=== PATIENT | female | born 1990 | race Hispanic/Latino ===

== ENCOUNTER → 2019-03-06 | Day surgery (SDC) | payer BC ==
[~2019-03-06] MED LIST: Lactated Ringer's 1,000 ML IV SCH; hydrALAZINE 20 MG/ML VIAL SLOW IVP PRN
[2019-03-06 13:13] VITALS: BMI 21.8
[2019-03-06 13:18] VITALS: BP 102/58; TEMP 98.8
[2019-03-06 14:44] LABS: FFN Internal QC Analyzer PASS (PASS); FFN Internal QC Cassette PASS (PASS); Fetal Fibronectin Negative (Negative)
--- NOTE | 2019-03-06 16:00 | ER ---
DATE OF SERVICE: 03/06/2019 TIME OF SERVICE: 1520 hours. PRESENTING COMPLAINT: Sent from office with contractions at 31 weeks gestation. HISTORY OF PRESENT ILLNESS: Ms. Paz is a 28-year-old primigravida with EDC of 05/08 placing her at 31 weeks and 0 days. She reports some spotting last night and this morning, and a feeling of pelvic pressure. She denied contractions. She denied rupture of membranes. She denied leakage of fluid. She was seen at [facility] and noted on NST to have a category 1 tracing with contractions every 3 to 5 minutes. They are not really significantly palpable on exam. CLAIM REP HISTORY: AB-positive, antibody negative. History of HSV. No recent outbreaks to start on suppression at 35 weeks. PAST MEDICAL HISTORY: Significant for depression, off medications. PAST SURGICAL HISTORY: None. ALLERGIES: DENIES. MEDICATIONS: vitamins. SOCIAL HISTORY: Denies tobacco, alcohol, or IV drug abuse. FAMILY HISTORY: Noncontributory. REVIEW OF SYSTEMS: Noncontributory. PHYSICAL EXAMINATION: GENERAL: White female. VITAL SIGNS: Temperature 98.8, pulse 85, respirations 18, blood pressure 118/72. HEENT: Within normal limits. LUNGS: Clear to auscultation bilaterally. HEART: Regular rhythm. ABDOMEN: Soft and nontender. Fundal height is 31 cm. FHTs 140s. VULVA: . VAGINA: . CERVIX: Closed, long, high, cephalic with the head somewhat lower than would be anticipated at 31 weeks gestation, but not abnormally so. fibronectin was collected prior to exam. fibronectin, negative. Prolonged monitoring/nonstress test was carried out, which revealed a category 1 heart rate tracing 140s, positive accelerations to 160s, no decelerations, category 1 heart rate tracing with contractions every 3 to 5 minutes, that were barely palpable at most and somewhat improved after 1 L IV hydration. IMPRESSION: Uterine irritability with no digital shortening of the cervix and a negative fibronectin at 31 weeks gestation. PLAN: Discussed with the patient about options. We will discharge the patient to home. The patient will have modified rest over the weekend, ER precautions, and we will not administer corticosteroids at this time. Plan of care transmitted to Dr. Ger Weston at [facility]. Job ID: [id number]
== END ==
LOC: L&D/OP 12:35
PROVIDERS: ATTEND Obstetrics & Gynecology
DX: Z34.83 Encounter for supervision of other normal pregnancy, third trimester (principal); Z3A.31 31 weeks gestation of pregnancy
CPT/HCPCS: 82731

== ENCOUNTER 2019-05-07 06:13 | Day surgery (SDC) | payer BC ==
[2019-05-07 07:01] VITALS: BMI 23.1
[2019-05-07 07:12] VITALS: BP 108/58; TEMP 98.6
[2019-05-07] MEDS ORDERED: hydrALAZINE 20 MG/ML VIAL SLOW IVP PRN (07:57)
--- NOTE | 2019-05-07 08:01 | PDOC.LDHP ---
Labor and Delivery H&P Chief complaint: contractions HPI: 28 y/o G1 at 39w6d, patient of Dr. Weston, presents with ctx q 4-6 mins at home. Denies VB, LOF, or decreased FM. ROS neg for HEENT, CV, pulm, GI, , neuro, psych, skin, musculoskeletal, or constitutional symptoms other than mentioned above. OB History Details: First Current complications: none, other Past Medical History: HSV Depression Anxiety Current medications: pre- vitamins, other (Sertraline, Valacyclovir) Previous surgical history: none Allergies/Adverse Reactions: Allergies Allergy/AdvReac Type Severity Reaction Status Date / Time No Known Drug Allergies Allergy Verified 05/07/19 06:47 Social history: none - Physical Exam Vital signs reviewed and normal: yes General: NAD, resting Lungs: nonlabored breathing Abdomen: gravid Extremeties: no edema FHT: category 1 (130s, mod variability, + accels, no decels) [place] contractions every: 5-7 - Vaginal Exam cm dilated: 1 Effacement: 50% Station: -2 - Assessment 28 y/o G1 at 39w6d with no e/o active labor. status reassuring with reactive NST. - Plan -: D/c home with precautions. Return for scheduled IOL Sunday or before if needed.
== END 2019-05-07 07:37 | disposition home or self-care (01) ==
LOC: L&D/OP 06:13
PROVIDERS: ATTEND Obstetrics & Gynecology
DX: O47.1 False labor at or after 37 completed weeks of gestation (principal); O99.343 Other mental disorders complicating pregnancy, third trimester; F41.9 Anxiety disorder, unspecified; F32.9 Major depressive disorder, single episode, unspecified; O98.513 Other viral diseases complicating pregnancy, third trimester; B00.9 Herpesviral infection, unspecified; Z3A.39 39 weeks gestation of pregnancy; Z79.899 Other long term (current) drug therapy
CPT/HCPCS: 99282

== ENCOUNTER 2019-05-08 01:11 | Inpatient (IN) | payer BC ==
[2019-05-08] MEDS ORDERED: hydrALAZINE 20 MG/ML VIAL SLOW IVP PRN ×3 (02:57→15:47)
[2019-05-08] MEDS ORDERED: Promethazine HCl 25 MG/ML VIAL IM PRN ×2 (02:59→09:12)
[2019-05-08] MEDS ORDERED: Morphine 10 MG/ML VIAL SLOW IVP SCH (03:00)
[2019-05-08] MEDS ORDERED: Calcium Carbonate 500 MG ChewTAB PO PRN (03:47)
--- NOTE | 2019-05-08 04:07 | PRG ---
DATE OF SERVICE: 05/08/2019 PRIMARY OB: Dr. Ger Weston. CHIEF COMPLAINT: Abdominal pain. HISTORY OF PRESENT ILLNESS: The patient is a 28-year-old G1, P0 female with an intrauterine at 40 weeks gestation, who is re-presenting to Labor and Delivery with persistent uterine contractions. She presented yesterday, was noted to be 1 cm dilated, and was ultimately discharged home. She reports this evening that since being discharged home, her contractions become much more intense and more frequent. She denies any fever, fall, headache, chest pain, or shortness of breath. She has had nausea. No vomiting. Denies diarrhea, constipation, hip problems, knee problems, or muscle weakness. Has some reports of bloody show but denies any leakage of fluid or urinary urgency or frequency. PAST MEDICAL HISTORY: Anxiety, depression, headaches, and genital herpes. PAST SURGICAL HISTORY: [place] tooth extraction. ALLERGIES: NO KNOWN DRUG ALLERGIES. MEDICATIONS: 1. Sertraline 50 mg daily. 2. Valtrex. SOCIAL HISTORY: Denies drug, alcohol, or tobacco use. OB LABS: Blood type is AB positive. Antibody screen is negative. VDRL is nonreactive. Hepatitis B surface antigen, nonreactive. HIV nonreactive in the first and third trimester. GC chlamydia negative. In the first trimester, she is rubella immune. VDRL nonreactive in the third trimester. Diabetes screen of 102. GBS unknown. REVIEW OF SYSTEMS: Per HPI. PHYSICAL EXAMINATION: VITAL SIGNS: Blood pressure 120/58, pulse of 80, respiratory rate 14, saturating 99% on room air, and temperature 99. GENERAL: The patient appears to be in distress with her contractions. She is otherwise alert, oriented, cooperative, and pleasant to interact with. HEAD: Normocephalic and atraumatic. LUNGS: Clear to auscultation bilaterally. HEART: Regular rate and rhythm. ABDOMEN: Gravid and soft in between contractions. EXTREMITIES: Nontender and nonedematous. CERVICAL: Per nursing staff is 2, 75, -2 station. Repeat is 3, 80, and -2 station. heart tracing shows the fetus with a baseline in the 120s with moderate long-term variability, positive 15 x 15 accelerations, no decelerations. Contractions are irregular everywhere between 1 to 6 minutes apart. ASSESSMENT AND PLAN: The patient is a 28-year-old female G1, P0, with an intrauterine at 40 weeks, presenting with persistent contractions since her last presentation. In our conversation, the patient has requested pain medication. We will keep her here for the next several hours to evaluate for labor. In the meantime, she will get IV morphine and Phenergan. It is unclear at this time whether her knows about her history of genital herpes as patient denied any medical history in his presence, though clear on the chart at around 27 weeks, patient did admit in conversation that she had an outbreak years ago. Anticipate patient staying, believe she is in latent labor now, and will progress in active labor prior to the next several hours. In the meantime, we will keep her comfortable, and we will be notifying Dr. Weston in the morning. Job ID: [id number]
[2019-05-08] MEDS ORDERED: Lidocaine 1% (PF) 30 ML VIAL SC PRN (07:34)
[2019-05-08] MEDS ORDERED: Ibuprofen 800 MG TAB PO PRN (07:34)
[2019-05-08] MEDS ORDERED: HYDROcodone/Acetaminophen 5/325 mg Tablet PO PRN ×3 (07:34→15:47)
[2019-05-08] MEDS ORDERED: Ondansetron PF 4 MG/2 ML Vial IVP PRN ×3 (07:34→15:47)
[2019-05-08] MEDS ORDERED: Lactated Ringer's 1,000 ML IV SCH (07:45)
[2019-05-08] MEDS: Lactated Ringer's 1,000 ML IV SCH ×2 (07:52→10:01)
[2019-05-08 08:17] LABS: Hemoglobin 12.5 g/dL (12.0-16.0); Mean Corpuscular HGB CONC 32.8 g/dL (32.0-36.0); Mean Corpuscular Hemoglobin 32.2 pg (27.0-31.0); Mean Corpuscular Volume 98.5 fL (78.0-98.0); Mean Platelet Volume 8.2 fL (7.4-10.4); Platelet Count 233 thou/uL (130-400); Red Blood Cell (RBC) Count 3.87 mill/uL (4.20-5.40); White Blood Cell (WBC) Count 14.1 thou/uL (4.8-10.8)
[2019-05-08] MEDS ORDERED: Fentanyl 4 mcg/Bup 0.1% Cadd 100 ML ONE (08:18)
[2019-05-08] MEDS ORDERED: Oxytocin 10 UNITS/ML VIAL ONE (08:42)
[2019-05-08] MEDS ORDERED: NS w/ Oxytocin 10 units 500 ML ONE (08:42)
[2019-05-08 09:01] LABS: Syphilis Antibody Nonreactive (Nonreactive); Syphilis Antibody Index 0.09 S/CO (<1.00 Non-Reactive)
[2019-05-08] MEDS ORDERED: diphenhydrAMINE 50 MG/ML VIAL IVP PRN (09:12)
[2019-05-08] MEDS ORDERED: Acetaminophen 325 MG TAB PO PRN (09:12)
[2019-05-08] MEDS ORDERED: Naloxone HCl 0.4 mg/ml Vial IVP PRN ×2 (09:12)
[2019-05-08] MEDS ORDERED: Lactated Ringer's 500 ML IV PRN (09:12)
[2019-05-08] MEDS ORDERED: Communication Order-Pharmacy FS SCH (09:15)
[2019-05-08] MEDS ORDERED: Fentanyl 4 mcg/Bupivacaine 0.1% Cassette 100 ML EPIDURAL SCH (09:15)
[2019-05-08 09:45] LABS: HBSAg Index 0.15 S/CO (0-0.99); Hep B Surf Ag Non-Reactive S/CO (NonReactive)
[2019-05-08] MEDS ORDERED: Bupivacaine 0.25% HCL 30 ML VIAL ONE (09:55)
[2019-05-08 10:18] VITALS: BMI 22.4
[2019-05-08] MEDS: NS / Oxytocin 40 units/1000ml 1,000 ML IV PRN ×2 (13:21→14:33)
--- NOTE | 2019-05-08 13:37 | PDOC.OPDEL ---
OB Operative/Delivery Note Delivery Dr/Surgeon: Enrico Pre-Delivery Diagnosis: active labor Procedure/Post Delivery Dx: spontaneous vaginal delivery Weeks gestation: 40 Anesthesia: epidural - Findings A Sex: male - Additional Findings/Plan Placenta delivered: spontaneous Repaired Obstetrical Laceration: left labial Estimated blood loss: 150ml Post delivery plan: routine recovery
[2019-05-08] MEDS ORDERED: Milk Of Magnesia 30 ML UDCUP PO PRN (15:47)
[2019-05-08] MEDS ORDERED: Bisacodyl 10 MG SUPP PR PRN (15:47)
[2019-05-08] MEDS ORDERED: NS / Oxytocin 40 units/1000ml 1,000 ML IV SCH (15:47)
[2019-05-08] MEDS ORDERED: Preparation H Ointment 28 GM TUBE PR PRN (15:47)
[2019-05-08] MEDS ORDERED: Adacel (T-DAP) 0.5 ML SYRINGE IM ONE (15:47)
[2019-05-08] MEDS ORDERED: diphenhydrAMINE 25 MG CAP PO PRN (15:47)
[2019-05-08] MEDS ORDERED: Benzocaine-Menthol 82.5 ML CAN TOP PRN (15:47)
[2019-05-08] MEDS ORDERED: Lanolin Ointment 7 GM TUBE TOP PRN (15:47)
[2019-05-08] MEDS: Ibuprofen 800 MG TAB PO SCH ×2 (17:17)
[2019-05-09] MEDS: Ibuprofen 800 MG TAB PO SCH ×4 (00:28→21:49)
[2019-05-09] MEDS: Docusate Calcium (SURFAK) 240 MG CAP PO SCH ×3 (00:50→21:49)
--- NOTE | 2019-05-09 08:11 | PDOC.PP ---
Post Progress Note Post Day #: 1 Subjective: No concerns. Pain controlled and minimal lochia. Breast feeding, desires to see LC today. PO intake tolerated: yes Flatus: yes Ambulation: yes Vital Signs (12 hours) Temp Pulse Resp BP 05/09/19 04:45 97.9 F 68 14 107/61 05/09/19 00:36 98.6 F 78 16 108/59 L Weight Weight 135 lb - Physical Examination General: NAD Cardiovascular: RRR Respiratory: non-labored breathing Abdominal: no distention, appropriately TTP Fundus firm & at: below umbilicus Extremities: negative homans (B) Neurological: no gross focal deficits Psychiatric: A&Ox3, normal affect Result Diagrams: 05/08/19 08:10 Additional Labs: Post Labs Blood Type AB POSITIVE 05/08/19 08:20 Hep Bs Antigen Non-Reactive S/CO (NonReactive) 05/08/19 08:10 (1) Vaginal delivery Code(s): O80 - ENCOUNTER FOR FULL-TERM UNCOMPLICATED DELIVERY Status: Acute - Assessment/Plan PPD1 VSSAF Continue PP care Plan for d/c home tomorrow.
[2019-05-09] MEDS: Prenatal Vitamin 1 TAB PO SCH (09:26)
[2019-05-10] MEDS: Ibuprofen 800 MG TAB PO SCH ×2 (05:49→14:47)
--- NOTE | 2019-05-10 06:00 | PDOC.PP ---
Post Progress Note Post Day #: PPD2 Subjective: Resting, no c/o. PO intake tolerated: yes Flatus: yes Ambulation: yes Vital Signs (12 hours) Temp Pulse Resp BP Pulse Ox 05/09/19 19:23 98.1 F 91 16 110/57 L 95 Weight Weight 61.235 kg - Physical Examination General: NAD Respiratory: non-labored breathing Neurological: no gross focal deficits Psychiatric: normal affect Result Diagrams: 05/08/19 08:10 Additional Labs: Post Labs Blood Type AB POSITIVE 05/08/19 08:20 Hep Bs Antigen Non-Reactive S/CO (NonReactive) 05/08/19 08:10 - Assessment/Plan Doing well. DC home with precautions. RTC [address] Weston.
[2019-05-10 08:11] VITALS: BP 109/64; TEMP 98
[2019-05-10] MEDS: Docusate Calcium (SURFAK) 240 MG CAP PO SCH (09:30)
[2019-05-10] MEDS: Prenatal Vitamin 1 TAB PO SCH (09:30)
== END 2019-05-10 15:00 | disposition home or self-care (01) | DRG 806 ==
LOC: L&D/OP 01:11 → L&D 08:13 → 3SW 16:49
PROVIDERS: ADMIT Obstetrics & Gynecology; ATTEND Obstetrics & Gynecology
PROC: 10E0XZZ Delivery of Products of Conception, External Approach (ICD-10-PCS; principal; 2019-05-08)
PROC: 0HQ9XZZ Repair Perineum Skin, External Approach (ICD-10-PCS; 2019-05-08)
DX: O99.344 Other mental disorders complicating childbirth (principal); O98.52 Other viral diseases complicating childbirth; Z37.0 Single live birth; F32.9 Major depressive disorder, single episode, unspecified; F41.9 Anxiety disorder, unspecified; O70.0 First degree perineal laceration during delivery; Z3A.40 40 weeks gestation of pregnancy; A60.00 Herpesviral infection of urogenital system, unspecified
CPT/HCPCS: 36415; 51702; 85027; 86780; 86850; 86900; 86901; 87340; 99282; 99285; J2270; J2550; J2590; S0020